=== PATIENT | male | born 1995 | race Two or more races ===

== ENCOUNTER → 2016-10-31 | Outpatient (CLI) | payer BC ==
[2016-10-31 10:41] LABS: ABSOLUTE BASOPHILS # (AUTO) 0.1 10^3/uL (0.0-0.2); ABSOLUTE EOSINOPHILS # (AUTO) 0.3 10^3/uL (0.0-0.6); ABSOLUTE MONOCYTES (AUTO) 0.6 10^3/uL (0.1-1.4); ABSOLUTE NEUT (AUTO) 1.6 10^3/uL (1.7-8.2); BASOPHILS % (AUTO) 1.4 % (0-2); EOSINOPHILS % (AUTO) 7.3 % (0-6); HEMATOCRIT 44.9 % (37.9-51.0); HEMOGLOBIN 15.8 g/dL (13.5-17.0); HGB HCT DIFFERENCE 2.5; LYMPHOCYTES % (AUTO) 29.2 % (13-45); MEAN CORPUSCULAR HEMOGLOBIN 31.6 pg (27.0-33.4); MEAN CORPUSCULAR HGB CONC 35.1 g/dL (32.0-36.0); MEAN CORPUSCULAR VOLUME 90 fl (80-97); MONOCYTES % (AUTO) 16.5 % (3-13); RED CELL DISTRIBUTION WIDTH 12.4 % (11.5-14.0); SEGMENTED NEUTROPHILS % (AUTO) 45.6 % (42-78); WHITE BLOOD COUNT 3.6 10^3/uL (4.0-10.5)
[2016-10-31 10:43] LABS: PROTHROMBIN TIME 14.3 SEC (11.4-15.4)
[2016-10-31 10:45] LABS: ALANINE AMINOTRANSFERASE 29 U/L (21-72); ALBUMIN 4.7 g/dL (3.5-5.0); ALKALINE PHOSPHATASE 68 U/L (38-126); ANION GAP 15 (5-19); ASPARTATE AMINO TRANSFERASE 25 U/L (17-59); BILIRUBIN,DIRECT 0.4 mg/dL (0.0-0.4); BILIRUBIN,TOTAL 0.9 mg/dL (0.2-1.3); BLOOD UREA NITROGEN 19 mg/dL (7-20); CARBON DIOXIDE 26 mmol/L (22-30); CHLORIDE 104 mmol/L (98-107); CREATININE RESULT 0.89 mg/dL (0.52-1.25); GLUCOSE 94 mg/dL (75-110); POTASSIUM 4.3 mmol/L (3.6-5.0); SODIUM 144.6 mmol/L (137-145); TOTAL PROTEIN 8.1 g/dL (6.3-8.2)
== END ==
LOC: FU 10:30
PROVIDERS: ATTEND Internal Medicine
DX: Z00.00 Encounter for general adult medical examination without abnormal findings (principal); Z13.0 Encounter for screening for diseases of the blood and blood-forming organs and certain disorders involving the immune mechanism
CPT/HCPCS: 80053; 85025; 85610

== ENCOUNTER 2017-02-12 12:54 | Emergency (ER) | payer OTHER, BC ==
[2017-02-12 13:03] VITALS: BP 140/74
[2017-02-12] MEDS ORDERED: DIPH/PERTUSS(ACELL)/TETANUS VAC/PF 0.5 ML SYR (>=10YO) IM ONE (13:29)
--- NOTE | 2017-02-12 13:50 | ER Document Report ---
ED Medical Screen (RME) - General Chief Complaint: Laceration Stated Complaint: LACERATION TO RIGHT INDEX FINGER Time Seen by Provider: 02/12/17 13:27 Mode of Arrival: Ambulatory Information source: Patient TRAVEL OUTSIDE OF THE [place] IN LAST 30 DAYS: No - HPI Onset: Just prior to arrival Context: INSTALLING A BREAKER BOX, WRENCH SLIPPED, CUT FINGER ON SHARP EDGE OF LUG. Quality of pain: Sharp Severity: Moderate Associated Symptoms: None Exacerbated by: Movement Relieved by: Denies Similar symptoms previously: No Recently seen / treated by doctor: No - Related Data Allergies/Adverse Reactions: cat dander Allergy (Verified 02/12/17 13:00) Past Medical History - General Information source: Patient - Past Medical History Cardiac Medical History: Reports: None Pulmonary Medical History: Reports: Hx Asthma Endocrine Medical History: Reports: None. Denies: Hx Diabetes Mellitus Type 1, Hx Diabetes Mellitus Type 2 Renal/ Medical History: Denies: Hx Peritoneal Dialysis Surgical Hx: Negative - Immunizations Hx Diphtheria, Pertussis, Tetanus Vaccination: No Review of Systems - Review of Systems Constitutional: No symptoms reported EENT: No symptoms reported Cardiovascular: No symptoms reported Musculoskeletal: See HPI Skin: See HPI Physical Exam - Vital signs Vitals: Temp Pulse Resp BP Pulse Ox 98.4 F 58 L 14 140/74 H 99 02/12/17 12:59 02/12/17 12:59 02/12/17 12:59 02/12/17 12:59 02/12/17 12:59 Interpretation: Hypertensive. No: Tachycardic, Tachypneic - General General appearance: Appears well, Alert In distress: None - Extremities General upper extremity: No: Normal inspection - FINGERTIP INJURY (NEAR- AMPUTATION) R. INDEX FINGER. BONE DOES NOT APPEAR TO BE INVOLVED - Skin Skin Temperature: Warm Skin Moisture: Dry Skin Color: Normal Skin Turgor: Elastic Course - Vital Signs Vital signs: Temp Pulse Resp BP Pulse Ox 98.4 F 58 L 14 140/74 H 99 02/12/17 12:59 02/12/17 12:59 02/12/17 12:59 02/12/17 12:59 02/12/17 12:59
[2017-02-12] MEDS ORDERED: ACETAMINOPHEN 325 MG TABLET PO ONE (15:04)
[2017-02-12] MEDS ORDERED: LIDOCAINE 1% INJ-PF (10 MG/ML) 30 ML SDV INJ ONE (15:32)
--- NOTE | 2017-02-12 15:35 | ER Document Report ---
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 Tetanus not current. Associated Symptoms: None Exacerbated by: Denies Relieved by: Denies - ROS ROS below otherwise negative: Yes Systems Reviewed and Negative: Yes All other systems reviewed and negative - DERM Skin Color: Normal Past Medical History - General Information source: Patient - Social History Smoking Status: Never Smoker Frequency of alcohol use: None Drug Abuse: None Lives with: Family Family History: None - Past Medical History Cardiac Medical History: Reports: None Pulmonary Medical History: Reports: Hx Asthma Endocrine Medical History: Reports: None Renal/ Medical History: Denies: Hx Peritoneal Dialysis Surgical Hx: Negative - Immunizations Hx Diphtheria, Pertussis, Tetanus Vaccination: No Vertical Provider Document - CONSTITUTIONAL Agree With Documented VS: Yes Exam Limitations: No Limitations - INFECTION CONTROL TRAVEL OUTSIDE OF THE [place] IN LAST 30 DAYS: No - HEENT HEENT: Atraumatic, Normocephalic - RESPIRATORY O2 Sat by Pulse Oximetry: 99 - MUSCULOSKELETAL/EXTREMETIES Musculoskeletal/Extremeties: MAEW, FROM, Tender - thin flap distal tip right index finger - NEURO Level of Consciousness: Awake, Alert, Appropriate Course - Re-evaluation Re-evalutation: 02/12/17 15:34 right handed, Procedure: while washing the wound after anesthetizing locally with 1 ml lidocaine the thin flap fell off, therefore washed well with sponge, saline rinse, bacitracin, telfa, dresing. - Vital Signs Vital signs: Temp Pulse Resp BP Pulse Ox 98.4 F 58 L 14 140/74 H 99 02/12/17 12:59 02/12/17 12:59 02/12/17 12:59 02/12/17 12:59 02/12/17 12:59 Discharge - Discharge Clinical Impression: avulsion tip right index finger skin Condition: Good Disposition: HOME, SELF-CARE Instructions: Acetaminophen, Antibiotic Ointment Protection ([facility]), Tetanus Immunization Given ([facility]) Additional Instructions: keep original dressing on for 24 hours, then remove and examine wound rederss with non stick dressing and bacitracin, may take 2 weeks to heal keep clean to er any concerns Please complete the patient satisfaction survey if you get one, and return it.. If you do not receive a survey, then you can go to the [facility] website, [email or web address] and place your comments about your very good care. Thank you very much. It was a pleasure being your medical provider today. Prescriptions: Ibuprofen [Motrin 800 mg Tablet] 800 mg PO Q8HP PRN #30 tablet PRN Reason: Forms: Return to Work
== END 2017-02-12 16:55 | disposition home or self-care (01) ==
LOC: ER 12:54
DX: S61.200A Unspecified open wound of right index finger without damage to nail, initial encounter (principal); W45.8XXA Other foreign body or object entering through skin, initial encounter; Y99.0 Civilian activity done for income or pay; J45.909 Unspecified asthma, uncomplicated
CPT/HCPCS: 99282; 90471; 90715; J3490

== ENCOUNTER 2017-09-18 09:58 | Emergency (ER) | payer BC, OTHER ==
--- NOTE | 2017-09-18 10:39 | ER Document Report ---
ED Medical Screen (RME) - General Chief Complaint: Bloody Stools Stated Complaint: BLOOD IN STOOL Time Seen by Provider: 09/18/17 10:34 Notes: Patient says that he has had blood in his stools for the past couple of weeks. He says it is a daily event. He has had this previously about a year ago and was checked and was told no cause could be found. He was checked by a medical provider about a year ago and told he does not have hemorrhoids. Denies any rectal or anal pain. Has no clotting disorders. Has never had anyone look up inside of him with a scope. TRAVEL OUTSIDE OF THE [place] IN LAST 30 DAYS: No - Related Data Allergies/Adverse Reactions: cat dander Allergy (Verified 02/12/17 13:00) Past Medical History - Social History Chew tobacco use (# tins/day): No Frequency of alcohol use: None Drug Abuse: None Pulmonary Medical History: Reports: Hx Asthma Endocrine Medical History: Denies: Hx Diabetes Mellitus Type 1, Hx Diabetes Mellitus Type 2 Renal/ Medical History: Denies: Hx Peritoneal Dialysis - Immunizations Hx Diphtheria, Pertussis, Tetanus Vaccination: No Physical Exam - Vital signs Vitals: Temp Pulse Resp BP Pulse Ox 98.3 F 62 16 112/84 100 09/18/17 10:20 09/18/17 10:20 09/18/17 10:20 09/18/17 10:20 09/18/17 10:20 Course - Vital Signs Vital signs: Temp Pulse Resp BP Pulse Ox 98.3 F 62 16 112/84 100 09/18/17 10:20 09/18/17 10:20 09/18/17 10:20 09/18/17 10:20 09/18/17 10:20
[2017-09-18 11:08] LABS: ABSOLUTE EOSINOPHILS # (AUTO) 0.4 10^3/uL (0.0-0.6); ABSOLUTE LYMPHOCYTES (AUTO) 1.2 10^3/uL (0.5-4.7); ABSOLUTE MONOCYTES (AUTO) 0.9 10^3/uL (0.1-1.4); ABSOLUTE NEUT (AUTO) 2.2 10^3/uL (1.7-8.2); EOSINOPHILS % (AUTO) 8.1 % (0-6); HEMATOCRIT 46.6 % (37.9-51.0); LYMPHOCYTES % (AUTO) 24.8 % (13-45); MEAN CORPUSCULAR HEMOGLOBIN 31.4 pg (27.0-33.4); MEAN CORPUSCULAR HGB CONC 34.4 g/dL (32.0-36.0); MEAN CORPUSCULAR VOLUME 91 fl (80-97); MONOCYTES % (AUTO) 18.8 % (3-13); PLATELET COUNT 289 10^3/uL (150-450); RED BLOOD COUNT 5.11 10^6/uL (4.35-5.55); RED CELL DISTRIBUTION WIDTH 11.8 % (11.5-14.0); SEGMENTED NEUTROPHILS % (AUTO) 47.3 % (42-78); TOTAL CELLS COUNTED % (AUTO) 100 %; WHITE BLOOD COUNT 4.7 10^3/uL (4.0-10.5)
[2017-09-18 11:19] LABS: INTERNATIONAL RATION (INR) 0.96; PROTHROMBIN TIME 13.5 SEC (11.4-15.4)
--- NOTE | 2017-09-18 11:28 | ER Document Report ---
HPI - HPI Patient complains to provider of: Blood in stools Onset: Other - 3 weeks Onset/Duration: Persistent Quality of pain: No pain Pain Level: Denies Context: Patient presents complaining of having blood in his stools when he has a bowel movement. Patient has noticed this over the past 3 weeks. Patient states that last year he had a similar episode but he never followed up with a GI specialist. Patient denies any hemorrhoids. Patient states he has had some mild constipation. Associated Symptoms: denies: Shortness of breath Exacerbated by: Denies Relieved by: Denies Similar symptoms previously: Yes Recently seen / treated by doctor: No - ROS ROS below otherwise negative: Yes Systems Reviewed and Negative: Yes All other systems reviewed and negative - CONSTITUTIONAL Constitutional: DENIES: Fever, Chills - GASTROINTESTINAL Gastrointestinal: REPORTS: Constipation, Black / Bloody Stools. DENIES: Abdominal Pain, Diarrhea - MUSCULOSKELETAL Musculoskeletal: DENIES: Back Pain - DERM Skin Color: Normal Skin Problems: None Past Medical History - General Information source: Patient - Social History Smoking Status: Never Smoker Chew tobacco use (# tins/day): No Frequency of alcohol use: Occasional Drug Abuse: None Occupation: Instructional Consultant Family History: None Patient has suicidal ideation: No Patient has homicidal ideation: No Pulmonary Medical History: Reports: Hx Asthma Endocrine Medical History: Denies: Hx Diabetes Mellitus Type 1, Hx Diabetes Mellitus Type 2 Renal/ Medical History: Denies: Hx Peritoneal Dialysis Past Surgical History: Reports: Hx Orthopedic Surgery - Immunizations Hx Diphtheria, Pertussis, Tetanus Vaccination: No Vertical Provider Document - CONSTITUTIONAL Agree With Documented VS: Yes Exam Limitations: No Limitations General Appearance: WD/WN, No Apparent Distress - INFECTION CONTROL TRAVEL OUTSIDE OF THE [place] IN LAST 30 DAYS: No - HEENT HEENT: Atraumatic, Normal ENT Exam, Normocephalic - NECK Neck: Normal Inspection - RESPIRATORY Respiratory: Breath Sounds Normal, No Respiratory Distress O2 Sat by Pulse Oximetry: 100 - CARDIOVASCULAR Cardiovascular: Regular Rate, Regular Rhythm - GI/ABDOMEN Gastrointestinal: Abdomen Soft, Abdomen Non-Tender, No Organomegaly, Normal Bowel Sounds Notes: Normal rectal exam, no obvious blood noted after digital rectal examination. No internal/external hemorrhoids. OSIRIS Jung as standby - BACK Back: Normal Inspection. negative: CVA Tenderness-Right, CVA Tenderness-Left - MUSCULOSKELETAL/EXTREMETIES Musculoskeletal/Extremeties: MAEW - NEURO Level of Consciousness: Awake, Alert, Appropriate Motor/Sensory: No Motor Deficit - DERM Integumentary: Warm, Dry Course - Re-evaluation Re-evalutation: 09/18/17 12:15 Patient's abdomen soft, nontender. No leukocytosis. No obvious active rectal bleeding at this time. Patient with Hemoccult positive test result. Patient encouraged to follow-up with a edge beader for colonoscopy - Vital Signs Vital signs: Temp Pulse Resp BP Pulse Ox 98.3 F 62 16 112/84 100 09/18/17 10:20 09/18/17 10:20 09/18/17 10:20 09/18/17 10:20 09/18/17 10:20 - Laboratory Result Diagrams: 09/18/17 10:45 Laboratory results interpreted by me: 09/18/17 10:45 Monocytes % 18.8 H Eosinophils % 8.1 H 09/18/17 12:15 Labs- Entire Visit 09/18/17 09/18/17 09/18/17 10:45 10:45 11:25 WBC 4.7 RBC 5.11 Hgb 16.0 Hct 46.6 MCV 91 MCH 31.4 MCHC 34.4 RDW 11.8 Plt Count 289 Seg Neutrophils % 47.3 Lymphocytes % 24.8 Monocytes % 18.8 H Eosinophils % 8.1 H Basophils % 1.0 Absolute Neutrophils 2.2 Absolute Lymphocytes 1.2 Absolute Monocytes 0.9 Absolute Eosinophils 0.4 Absolute Basophils 0.0 PT 13.5 INR 0.96 Stool Occult Blood POSITIVE Discharge - Discharge Clinical Impression: Blood in stool Condition: Stable Disposition: HOME, SELF-CARE Instructions: Rectal Bleeding, Unclear Cause ([facility]) Additional Instructions: Return immediately for any new or worsening symptoms Followup with your primary care provider, call tomorrow to make a followup appointment Follow-up with a edge beader for a colonoscopy procedure, call Wednesday for an appointment Referrals: [facility] [Provider Group] - Follow up as needed SHELLI GALE MD [ACTIVE STAFF] - Follow up in 3-5 days NOHEMY YU MD [ACTIVE STAFF] - Follow up in 3-5 days
[2017-09-18 12:27] VITALS: BP 122/57
== END 2017-09-18 12:27 | disposition home or self-care (01) ==
LOC: ER 09:58
DX: K92.1 Melena (principal); K59.00 Constipation, unspecified; J45.909 Unspecified asthma, uncomplicated
CPT/HCPCS: 36415; 82272; 85025; 85610; 99283

== ENCOUNTER 2018-12-17 08:55 | Emergency (ER) | payer BC, OTHER ==
[2018-12-17 09:03] VITALS: BP 116/54
[2018-12-17] MEDS ORDERED: DEXAMETHASONE SOD PHOS INJ 10 MG/1 ML VIAL IM ONE (09:39)
--- NOTE | 2018-12-17 09:43 | ER Document Report ---
HPI - HPI Patient complains to provider of: sore throat Time Seen by Provider: 12/17/18 09:26 Pain Level: 5 Context: 23-year-old healthy male presents emergency department with sore throat x1.5 weeks. He was seen at [facility] and was given a rapid strep and tested for mono, blood work was drawn, and all were negative. He was still given a round of antibiotics for which he took with no resolution. Patient denies fevers, chills, nausea, vomiting, headache, earache, sore throat, difficulty breathing, cough, rhinorrhea, sinus pressure, any other symptoms. Patient states he feels well other than the sore throat which is worse on the right side. - CONSTITUTIONAL Constitutional: DENIES: Fever, Chills - EENT EENT: REPORTS: Sore Throat - RESPIRATORY Respiratory: DENIES: Coughing Past Medical History - Social History Smoking Status: Never Smoker Family History: None Patient has suicidal ideation: No Patient has homicidal ideation: No Pulmonary Medical History: Reports: Hx Asthma Endocrine Medical History: Denies: Hx Diabetes Mellitus Type 1, Hx Diabetes Mellitus Type 2 Renal/ Medical History: Denies: Hx Peritoneal Dialysis Past Surgical History: Reports: Hx Orthopedic Surgery - Immunizations Hx Diphtheria, Pertussis, Tetanus Vaccination: No Vertical Provider Document - CONSTITUTIONAL Notes: PHYSICAL EXAMINATION: Reviewed vital signs and charting by RN GENERAL: Alert, interacts well. No acute distress. HEAD: Normocephalic, atraumatic. EYES: Pupils equal, round, and reactive to light. Extraocular movements intact. ENT: Oral mucosa moist, tongue midline. Uvula midline, 3+ tonsillar hypertrophy with mild erythema and no tonsillar exudate. NECK: Full range of motion. Supple. Trachea midline. LUNGS: Clear to auscultation bilaterally, no wheezes, rales, or rhonchi. No respiratory distress. HEART: Regular rate and rhythm. No murmur ABDOMEN: soft, non-tender. No distention. Bowel sounds present EXTREMITIES: Moves all 4 extremities spontaneously. No edema, No cyanosis. PSYCH: Normal affect, normal mood. SKIN: Warm, dry, normal turgor. No rashes or lesions noted. - INFECTION CONTROL TRAVEL OUTSIDE OF THE [place] IN LAST 30 DAYS: No Course - Re-evaluation Re-evalutation: 12/17/18 09:42 Presentation of several days of sore throat in an otherwise well-appearing patient. Rapid strep from urgent care is negative. History and exam are not consistent with a retropharyngeal abscess or peritonsillar abscess. Airway is patent. No difficulty handling oral secretions. Vitals within normal limits. Patient was treated with a dose of dexamethasone and advised on symptomatic care. Suspect likely viral pharyngitis. At this time will discharge with return precautions and follow-up recommendations. Verbal discharge instructions given a the bedside and opportunity for questions given. Medication warnings reviewed. Patient is in agreement with this plan and has verbalized understanding of return precautions and the need for primary care follow-up in the next 24-72 hours. - Vital Signs Vital signs: Temp Pulse Resp BP Pulse Ox 97.6 F 72 16 116/54 L 97 12/17/18 09:02 12/17/18 09:02 12/17/18 09:02 12/17/18 09:02 12/17/18 09:02 Discharge - Discharge Clinical Impression: Pharyngitis Qualifiers: Pharyngitis/tonsillitis etiology: unspecified etiology Qualified Code(s): J02.9 - Acute pharyngitis, unspecified Condition: Good Disposition: HOME, SELF-CARE Instructions: Sore Throat ([facility]) Additional Instructions: Because you had a negative strep testing were placed on antibiotics that did not work is most likely a viral infection causing the symptoms. Your symptoms should resolve in the next week. You have also been given a dose of steroids to help with your throat discomfort. Please continue to take ibuprofen 600 mg every 6 hours or Tylenol 1000 mg every 6 hours as needed for throat discomfort. You can also gargle with salt water. Continue to drink plenty of fluids. Follow-up with your primary care doctor in the next several days. Return if you become unable to swallow, have difficulty breathing, pass out, have persistent vomiting that prevents you from being able to tolerate fluids, or have any other symptoms that are concerning to you.
== END 2018-12-17 09:59 | disposition home or self-care (01) ==
LOC: ER 08:55
DX: J02.9 Acute pharyngitis, unspecified (principal)
CPT/HCPCS: 99282; 96372; J1100

== ENCOUNTER 2020-01-16 05:01 | Emergency (ER) | payer SELFPAY ==
--- NOTE | 2020-01-16 06:07 | RADIOLOGY REPORT (SQ) ---
EXAM DESCRIPTION: XR FINGERS COMPLETED DATE/TME: 01/16/2020 00:00 CLINICAL HISTORY: 24 years, Male, bone pain COMPARISON: None. NUMBER OF VIEWS: Three TECHNIQUE: Three views of the right fourth digit. LIMITATIONS: None. FINDINGS: There is no acute fracture or dislocation. No large soft tissue swelling. Joint spaces are preserved. No radiopaque foreign body. IMPRESSION: No acute fracture or dislocation. copyright 2010 [employer]- All Rights Reserved
[2020-01-16 07:04] LABS: ABSOLUTE BASOPHILS # (AUTO) 0.1 10^3/uL (0.0-0.2); ABSOLUTE EOSINOPHILS # (AUTO) 0.3 10^3/uL (0.0-0.6); ABSOLUTE LYMPHOCYTES (AUTO) 1.6 10^3/uL (0.5-4.7); ABSOLUTE MONOCYTES (AUTO) 0.8 10^3/uL (0.1-1.4); ABSOLUTE NEUT (AUTO) 3.2 10^3/uL (1.7-8.2); BASOPHILS % (AUTO) 0.9 % (0-2); EOSINOPHILS % (AUTO) 4.4 % (0-6); HEMATOCRIT 45.5 % (37.9-51.0); HEMOGLOBIN 15.9 g/dL (13.5-17.0); LYMPHOCYTES % (AUTO) 27.5 % (13-45); MEAN CORPUSCULAR HEMOGLOBIN 32.1 pg (27.0-33.4); MEAN CORPUSCULAR HGB CONC 35.1 g/dL (32.0-36.0); MEAN CORPUSCULAR VOLUME 91 fl (80-97); PLATELET COUNT 279 10^3/uL (150-450); RED BLOOD COUNT 4.97 10^6/uL (4.35-5.55); RED CELL DISTRIBUTION WIDTH 11.9 % (11.5-14.0); SEGMENTED NEUTROPHILS % (AUTO) 54.2 % (42-78); TOTAL CELLS COUNTED % (AUTO) 100 %
--- NOTE | 2020-01-16 07:29 | ER Document Report ---
Entered by ULICES VILLARREAL SCRIBE 01/16/20 0641 Acting as scribe for:DAO DALEY MD ED Hand/Wrist Injury - General Chief Complaint: Finger Injury Stated Complaint: INJURY TO RIGHT HAND Time Seen by Provider: 01/16/20 06:32 Mode of Arrival: Ambulatory Information source: Patient Notes: This 24-year-old male patient presents to the emergency department today with complaints of right fourth finger pain. Patient states that there is no trauma or injury to the finger that he can remember. Patient states this pain "just crept up on him". 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 TRAVEL OUTSIDE OF THE [place] IN LAST 30 DAYS: No - Related Data Allergies/Adverse Reactions: cat dander Allergy (Verified 02/12/17 13:00) Past Medical History - General Information source: Patient - Social History Smoking Status: Never Smoker Cigarette use (# per day): No Frequency of alcohol use: None Drug Abuse: None Occupation: electrician chief Family History: None Patient has homicidal ideation: No Pulmonary Medical History: Reports: Hx Asthma Past Surgical History: Reports: Hx Orthopedic Surgery - Immunizations Hx Diphtheria, Pertussis, Tetanus Vaccination: No Review of Systems - Review of Systems Constitutional: No symptoms reported EENT: No symptoms reported Cardiovascular: No symptoms reported Respiratory: No symptoms reported Gastrointestinal: No symptoms reported Genitourinary: No symptoms reported Male Genitourinary: No symptoms reported Musculoskeletal: See HPI, Other - Right fourth finger pain Skin: No symptoms reported Hematologic/Lymphatic: No symptoms reported Neurological/Psychological: No symptoms reported -: Yes All other systems reviewed and negative Physical Exam - Vital signs Vitals: Temp Pulse Resp BP Pulse Ox 97.6 F 60 16 114/63 98 01/16/20 05:19 01/16/20 05:19 01/16/20 05:19 01/16/20 05:19 01/16/20 05:19 - Notes Notes: Physical Exam: General: Alert, appears well. HEENT: Normocephalic. Atraumatic. PERRLA. Extraocular movements intact. Oropharynx clear. Neck: Supple. Respiratory: No respiratory distress. Abdominal: Normal Inspection. No distension. Extremities: Right fourth finger pain with flexion of DIP, DIP flexion causes most pain over the volar ulnar aspect of the fourth finger over the right PIP. Neurological: Normal cognition. AAOx4. Normal speech. Psychological: Normal affect. Normal Mood. Skin: Warm. Dry. Normal color. Course - Vital Signs Vital signs: Temp Pulse Resp BP Pulse Ox 97.6 F 60 16 114/63 98 01/16/20 05:19 01/16/20 05:19 01/16/20 05:19 01/16/20 05:19 01/16/20 05:19 - Laboratory Result Diagrams: 01/16/20 06:55 - Diagnostic Test Radiology reviewed: Image reviewed, Reports reviewed - X-ray of the fourth finger shows a small bone fragment or calcification measuring 2.3 x 1.1 mm along the radial side of the PIP joint on the fourth finger. MRI shows a transverse fracture in the distal aspect of the proximal phalanx in the region of the collateral ligament insertion. Discharge - Discharge Clinical Impression: Fracture of proximal phalanx of finger of right hand Condition: Stable Disposition: HOME, SELF-CARE Additional Instructions: The MRI shows a transverse fracture across the distal end of the proximal phalanx of your right fourth finger. This corresponds to the area where the ligaments insert. Keep the fingers vi taped together using a small amount of cotton between the fingers to separate the skin. Take ibuprofen or Aleve for inflammation pain. Call Dr. Kellogg's office at the [facility] today to schedule appointment for next Wednesday. Referrals: MELISSA KELLOGG DO [ACTIVE STAFF] - 01/22/20 (Call the office today to schedule an appointment for next Wednesday on 01/22/2020) I personally performed the services described in the documentation, reviewed and edited the documentation which was dictated to the scribe in my presence, and it accurately records my words and actions.
--- NOTE | 2020-01-16 07:38 | PDOC CONSULTATION ---
Consultation Consult Date: 01/16/20 Provider Consulted: MELISSA KELLOGG History of Present Illness Patient complains of: Pain right ring finger History of Present Illness: VENUS KELLY is a 24 year old male who works as an electrician supervisor presented to the emergency room with pain in his right ring finger. Patient denies specific injury. Denies laceration, insect bite or open wound. Denies fever chills or sweats. Pain worse with any attempted motion of the digit. Patient noted swelling approximately 48 hours ago which was unchanged but continued to have pain and discomfort. Pain 5/5 with motion. Denies prior injury. Past Medical History Pulmonary Medical History: Reports: Asthma Endocrine Medical History: Denies: Diabetes Mellitus Type 1, Diabetes Mellitus Type 2 Past Surgical History Past Surgical History: Reports: Orthopedic Surgery Social History Smoking Status: Never Smoker Family History Family History: None Parental Family History Reviewed: No Children Family History Reviewed: No Sibling(s) Family History Reviewed.: No Medication/Allergy Home Medications: Amox Tr/Potassium Clavulanate [Augmentin 875-125 mg Tablet] 1 tab PO .LAST DOSE 12/16/18 12/17/18 Allergies/Adverse Reactions: cat dander Allergy (Verified 02/12/17 13:00) Review of Systems Constitutional: ABSENT: chills, fever(s), headache(s), weight gain, weight loss Eyes: ABSENT: visual disturbances Ears: ABSENT: hearing changes Cardiovascular: ABSENT: chest pain, dyspnea on exertion, edema, orthropnea, palpitations Respiratory: ABSENT: cough, hemoptysis Gastrointestinal: ABSENT: abdominal pain, constipation, diarrhea, hematemesis, hematochezia, nausea, vomiting Genitourinary: ABSENT: dysuria, hematuria Musculoskeletal: PRESENT: as per HPI Integumentary: ABSENT: rash, wounds Neurological: ABSENT: abnormal gait, abnormal speech, confusion, dizziness, focal weakness, syncope Psychiatric: ABSENT: anxiety, depression, homidical ideation, suicidal ideation Endocrine: ABSENT: cold intolerance, heat intolerance, menstrual abnormalities, polydipsia, polyuria Hematologic/Lymphatic: ABSENT: easy bleeding, easy bruising, lymphadenopathy Physical Exam Vital Signs: Temp Pulse Resp BP Pulse Ox 97.6 F 60 16 114/63 98 01/16/20 05:01/16/20 05:01/16/20 05:01/16/20 05:01/16/20 05:19 Intake & Output 01/15/20 01/16/20 01/17/20 06:59 06:59 06:59 Weight 89.2 kg General appearance: PRESENT: no acute distress, well-developed, well-nourished Head exam: PRESENT: atraumatic, normocephalic Eye exam: PRESENT: conjunctiva pink, EOMI, PERRLA. ABSENT: scleral icterus Ear exam: PRESENT: normal external ear exam Mouth exam: PRESENT: moist, tongue midline Neck exam: PRESENT: full ROM. ABSENT: carotid bruit, JVD, lymphadenopathy, thyromegaly Respiratory exam: PRESENT: unlabored Cardiovascular exam: PRESENT: RRR. ABSENT: diastolic murmur, rubs, systolic murmur Pulses: PRESENT: normal dorsalis pedis pul, +2 pedal pulses bilateral Vascular exam: PRESENT: normal capillary refill GI/Abdominal exam: PRESENT: normal bowel sounds, soft. ABSENT: distended, guarding, mass, organolmegaly, rebound, tenderness Rectal exam: PRESENT: deferred Musculoskeletal exam: PRESENT: other - Right ring finger: Swelling noted along the radial aspect of the PIP joint. Exquisite tenderness along the radial collateral ligament of the PIP joint. Mild instability at 0 degrees and 30 degrees of flexion. No tenderness on the flexor sheath. Intact active flexion/extension. Minimal pain with passive PIP joint range of motion. No effusion. Pain with attempted terminal flexion of the digit. No evidence of open wound or palpable fluctuance. No sensory deficits. Cap refill less than 2 seconds. Neurological exam: PRESENT: alert, awake, oriented to person, oriented to place, oriented to time, oriented to situation, CN II-XII grossly intact. ABSENT: motor sensory deficit Psychiatric exam: PRESENT: appropriate affect, normal mood. ABSENT: homicidal ideation, suicidal ideation Skin exam: PRESENT: dry, intact, warm. ABSENT: cyanosis, rash Results Laboratory Results: 01/16/20 06:55 01/16/20 06:55 WBC 6.0 RBC 4.97 Hgb 15.9 Hct 45.5 MCV 91 MCH 32.1 MCHC 35.1 RDW 11.9 Plt Count 279 Seg Neutrophils % 54.2 Impressions: Finger X-Ray 01/16/20 00:00 IMPRESSION: No acute fracture or dislocation. copyright 2010 [employer]- All Rights Reserved Status: Image reviewed by me - I have reviewed patient's radiographs which demonstrate small calcification on the radial aspect of the PIP joint which may be indicative of underlying avulsion injury versus calcific tendinitis. Assessment & Plan - Diagnosis (1) Traumatic rupture of collateral ligament of interphalangeal joint of finger Is this a current diagnosis for this admission?: Yes Plan: Patient has findings suggesting radial collateral ligament avulsion injury however calcific tendinitis remains within the differential diagnosis. Infectious process is much lower on the differential. Currently labs are pending at this point I have recommended pain medication, anti-inflammatories along with vi taping to the adjacent middle finger to adequately immobilize the PIP joint. Would also recommend MRI to further evaluate collateral ligament injury or PIP joint effusion. If MRI and lab findings are consistent with collateral ligament injury or calcific tendinitis would recommend NSAIDs along with pain medication. Patient may follow-up as an outpatient.
[2020-01-16 07:47] LABS: ERYTHROCYTE SEDIMENTATION RATE 10 mm/hr (0-15)
--- NOTE | 2020-01-16 10:03 | RADIOLOGY REPORT (SQ) ---
EXAM DESCRIPTION: MRI RT UPPER EXTREMITY WITHOUT IMAGES COMPLETED DATE/TIME: 01/16/2020 9:35 am REASON FOR STUDY: 4th finger ligament injury COMPARISON: None. TECHNIQUE: Multiplanar imaging of the right 4th finger to include fat and fluid sensitive sequences. LIMITATIONS: None. FINDINGS: BONE MARROW: Edema associated with nondisplaced transverse fracture of the distal diaphysi s of the proximal 4th phalanx. Fracture line is at the level of the collateral ligament attachments. SOFT TISSUES: Intact tendon and ligaments. OTHER: No other significant finding. IMPRESSION: Nondisplaced fracture proximal 4th phalanx. TECHNICAL DOCUMENTATION: JOB ID: [id number] 2010 [employer]- All Rights Reserved Reading location - IP/workstation name: [email or web address]
[2020-01-16 10:51] VITALS: BP 126/69
== END 2020-01-16 11:00 | disposition home or self-care (01) ==
LOC: ER 05:01
DX: M84.441A Pathological fracture, right hand, initial encounter for fracture (principal); M79.644 Pain in right finger(s); J45.909 Unspecified asthma, uncomplicated; Z91.048 Other nonmedicinal substance allergy status; S63.40 Traumatic rupture of unspecified ligament of finger at metacarpophalangeal and interphalangeal joint; X58.XXXA Exposure to other specified factors, initial encounter
CPT/HCPCS: 36415; 85025; 85652; 99284